=== PATIENT | female | born 1995 ===

== ENCOUNTER 2022-09-17 23:02 | Observation (INO) | payer OTHER, SELFPAY ==
[2022-09-17] MEDS ORDERED: Promethazine HCl 25 MG/ML VIAL IM PRN (23:31)
[2022-09-17] MEDS ORDERED: Zolpidem Tartrate 5 MG TAB PO PRN (23:31)
[2022-09-17] MEDS ORDERED: hydrALAZINE 20 MG/ML VIAL SLOW IVP PRN (23:31)
[2022-09-17] MEDS ORDERED: Metoclopramide HCl 10 MG/2 ML VIAL IVP PRN (23:31)
[2022-09-17] MEDS ORDERED: Ondansetron PF 4 MG/2 ML Vial IVP PRN (23:31)
[2022-09-17] MEDS ORDERED: Acetaminophen 500 MG TAB PO PRN (23:31)
[2022-09-17] MEDS ORDERED: Docusate 100 MG CAP PO PRN (23:31)
[2022-09-17] MEDS ORDERED: Doxylamine 25 MG TAB PO SCH (23:45)
[2022-09-18] MEDS: Multivitamins, Adult 10 ML, Folic Acid 1 MG, Thiamine HCl 100 MG in Dextrose 5 %-0.45 %... IV SCH (00:20)
[2022-09-18] MEDS: Promethazine HCl 25 MG SUPP PR SCH ×3 (00:21→16:44)
[2022-09-18] MEDS: Ondansetron PF 4 MG/2 ML Vial IVP SCH ×4 (00:21→17:59)
[2022-09-18] MEDS: Dextrose 5%-Lactated Ringers 1,000 ML IV SCH ×4 (06:23→21:18)
[2022-09-18] MEDS: pyridOXINE 50 MG (B6) TAB PO SCH ×3 (08:01→21:30)
[2022-09-18 09:24] LABS: Amphetamine Not Detected (NotDetected); Barbiturates Screen Not Detected (NotDetected); Benzodiazepine Screen Not Detected (NotDetected); Cocaine Metabolite Screen Not Detected (NotDetected); Methadone Not Detected (NotDetected); Methamphetamine Not Detected (NotDetected); Opiate Screen Not Detected (NotDetected); Oxycodone Screen Not Detected (NotDetected); Phencyclidine (PCP) Not Detected (NotDetected); THC/Cannabinoid Screen Detected (NotDetected); Tricyclic Screen Not Detected (NotDetected)
[2022-09-18] MEDS: Famotidine 20 MG TAB PO PRN ×2 (11:08→21:15)
[2022-09-18] MEDS ORDERED: Doxylamine 25 MG TAB PO SCH (21:00)
[2022-09-19] MEDS: Ondansetron PF 4 MG/2 ML Vial IVP SCH ×3 (00:18→06:29)
[2022-09-19] MEDS: Multivitamins, Adult 10 ML, Folic Acid 1 MG, Thiamine HCl 100 MG in Dextrose 5 %-0.45 %... IV SCH (00:18)
[2022-09-19] MEDS: Promethazine HCl 25 MG SUPP PR SCH (06:30)
[2022-09-19 08:25] VITALS: BP 110/70; TEMP 98.3
== END 2022-09-19 08:30 | disposition home health service (06) ==
LOC: CSHPED 23:19
PROVIDERS: ADMIT Student in an Organized Health Care Education/Training Program; ATTEND Student in an Organized Health Care Education/Training Program
DX: O21.2 Late vomiting of pregnancy (principal); O99.342 Other mental disorders complicating pregnancy, second trimester; F41.9 Anxiety disorder, unspecified; Z3A.21 21 weeks gestation of pregnancy
CPT/HCPCS: 36415; 80053; 80306; 81001; 83605; 83690; 85025; 87086; 96365; 96375; 96376; G0378; J1200; J2405; J2550; J3411; J7042; J7999